=== PATIENT | female | born 1990 | race Caucasian/White ===

== ENCOUNTER 2020-01-14 05:45 | Emergency (ER) | payer OTHER ==
[2020-01-14 06:26] VITALS: BP 142/83; PULSE 98; TEMP 98.6; BMI 30.8
[2020-01-14] MEDS ORDERED: CEPHALEXIN MONOHYDRATE 500 MG CAPSULE (UD) PO ONE (07:29)
[2020-01-14] MEDS ORDERED: CEPHALEXIN MONOHYDRATE 500 MG CAPSULE (UD) ONE (07:34)
--- NOTE | 2020-01-14 07:38 | PDOC ---
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 She notes a distant history of cutting gestures but denies any recent issues with this, denies SI or HI and denies any attempt to harm herself, insists this was an accident. States her last tetanus vaccination was within the past 5 years. She notes the scissors were clean and there was no debris in the wound that she saw, did not lose a significant amount of blood, did not fall or suffer any additional injury, able to move and feel the thumb normally, denies any other symptoms. Past History - Medical History Allergies/Adverse Reactions: Allergies Allergy/AdvReac Type Severity Reaction Status Date / Time No Known Allergies Allergy Verified 01/14/20 06:00 Home Medications: Ambulatory Orders Cephalexin [Keflex Oral Suspension -] 500 mg PO TID 5 Days #1 bottle 01/14/20 - Psycho-Social/Smoking History Smoking History: Never smoked Have you smoked in the past 12 months: No - Substance Abuse Hx (Audit-C & DAST Scrn) How often the patient has a drink containing alcohol: Never Score: In Men: 4 or > Positive; In Women: 3 or > Positive: 0 Screen Result (Pos requires Nsg. Audit-10AR): Negative In the last yr the pt used illegal drug/Rx for NonMed reason: No Score: Yes response is considered Positive: 0 Screen Result (Positive result requires Nsg. DAST-10): Negative *Review of Systems - Review of Systems Able to Perform ROS?: Yes 01/14/20 09:58 GEN: no fever, chills, night sweats, generalized weakness, malaise, or unintentional weight change HEENT: no ear pain, congestion, sore throat, vision change, or eye pain CV: no chest pain, palpitations, lightheadedness, syncope, or edema RESP: no cough, wheezing, or SOB GI: no abdominal pain, nausea, vomiting, diarrhea, constipation, or white/black/bloody stool : no dysuria, hematuria, frequency, incontinence, retention, or discharge MSK: no muscle weakness or pain, no joint swelling or pain NEURO: no headache, seizure, vertigo, imbalance, numbness, tingling, focal weakness, or difficulty walking/talking PSYCH: no insomnia, behavior change, SI, HI, or substance use SKIN: left thumb laceration, otherwise skin exam with no prurtitis, excessive dryness, jaundice, rash, cuts, or unexplained bruises ROS otherwise negative except as noted in HPI *Physical Exam - Vital Signs Last Vital Signs Temp Pulse Resp BP Pulse Ox 98.6 F 98 H 20 142/83 99 01/14/20 05:59 01/14/20 05:59 01/14/20 05:59 01/14/20 05:59 01/14/20 05:59 - Physical Exam 01/14/20 09:58 GENERAL: a bit bizarre and agitated initially but nontoxic-appearing, A/Ox4, answers questions appropriately, calms down with conversation, accompanied by her significant other HEENT: PERRLA, EOMI, moist mucous membranes NECK/BACK: no midline ttp, no spinal stepoff or deformity, no hematoma, full ROM, neck supple CARDIOVASCULAR: regular rate/rhythm, no MGR, strong peripheral pulses, capillary refill <2 seconds, extremities wwp, no edema LUNGS/RESPIRATORY: no respiratory distress, CTAB GI/ABDOMEN: symmetric [id number], normoactive BS, soft, no ttp, no midline pulsatile masses : no CVA tenderness MSK/EXTREMITIES: no muscle atrophy, no acute deformity SKIN: 2.8 cm linear partial-thickness laceration to proximal third of lateral aspect of thenar eminence with oozing bleeding but no arterial bleeding, full sensation and motor intact, good capillary refill distally, warm and dry, no pallor, no jaundice, no rash, no pathologic-appearing bruising, no skin breakdown, no cuts, no lesions NEUROLOGICAL: GCS 15, CN II-XII grossly intact, 5/5 strength proximally and distally, no facial droop Procedures - Laceration/Wound Repair Left 1st digit Wound Length: 2.6 to 5.0 cm Wound Explored: clean Wound's Depth, Shape: superficial, linear Amount of Anesthetic (ccs): 3 Wound Repaired With: Sutures Suture Size/Type: 3:0, nylon Number of Sutures: 4 Splint Applied: No Sling Applied: No Progress: Patient tolerated well, irrigated for 7 minutes under faucet, hemostasis achieved, bacitracin applied and extra given to patient for home, bandage applied, PO abx given via E-Rx Medical Decision Making - Medical Decision Making 01/14/20 10:03 29 YOF p/w laceration, no e/o tendon, ligament, or bony injury, no obvious FB or debris, Tdap up to date. Initial Vital Signs Temp Pulse Resp BP Pulse Ox 98.6 F 98 H 20 142/83 99 01/14/20 05:59 01/14/20 05:59 01/14/20 05:59 01/14/20 05:59 01/14/20 05:59 DDX IBNLT: Simple skin/soft tissue laceration. There is no e/o tendon/ligament involvement, bony involvement, larger blood vessel injury, retained FB, wound contamination, etc. However this is a hand laceration with thenar eminence involvement and thus we will give Rx for antibiotics and repair laceration with sutures. W/U ordered: None TX ordered: abx dose ordered, refused by patient Laceration numbed, cleaned, repaired without issue as noted in Procedures section. Hemostasis achieved, good approximation, Bacitracin applied and wound dressed. DISCHARGE The Pts laceration has been repaired without issue, ppx given as indicated. They do not require abx for this laceration. E-Rx is sent to their pharmacy for abx and they will take the whole course as Rx. Workup is not concerning for emergency-level pathology at this time. The Pt is appropriate for discharge with close outpatient follow up. They are comfortable with this plan and will follow up with the [facility], referral information given. She is instructed to return for wound check and suture removal, or go to IM clinic for these services. Specific return precautions are discussed and they will come back to the ER if necessary. Discharge - Discharge Information Problems reviewed: Yes Clinical Impression/Diagnosis: Laceration Condition: Stable Disposition: HOME - Admission No - Additional Discharge Information Prescriptions: Cephalexin [Keflex Oral Suspension -] 500 mg PO TID 5 Days #1 bottle - Follow up/Referral Ref[place]: [facility] [place] Group] - Patient Discharge Instructions Patient Printed Discharge Instructions: DI for Suture Removal, DI for Laceration Repair -- Simple Additional Instructions: You were seen in the ER for a skin laceration. We did an exam, cleaned and repaired the laceration, and made sure your tetanus vaccination was up to date (it already was) and gave you your first dose of antibiotic. After our assessment, we do not believe you are having a medical emergency at this time, and we believe you are safe to go home. Please read the information in this packet on how to care for your laceration. 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 Keep the dressing on your wound until tonight, and keep this dressing clean and dry. Tonight, you can take the dressing off and you rinse the wound, but do not scrub the wound and do not soak it in water. Do not go swimming or take a bath or submerge the wound in standing water. Put a thin layer of antibiotic ointment on the wound once in tonight and once again tomorrow morning, and keep a loose bandage on it until tomorrow night. Please follow up with your primary care provider to have the sutures removed in 5-7 days, or return here to the ER to have them removed. If you have any new or worsening symptoms, especially increasing pain and redness to the area or other signs of infection like fever, please come back to the ER at any time (24 hours a day). If you are having severe or life threatening symptoms, or symptoms that make it unsafe to drive or have someone drive you, please call 911. We sent the antibiotic prescription to the [facility] about a mile away. It is very important that you pick this up and take it starting this morning, especially because you did not want the antibiotic pill here in the ER. This is important to prevent infection of your thumb and hand, which can cause serious problems such as loss of the thumb or hand. - Post Discharge Activity
== END 2020-01-14 07:51 | disposition home or self-care (01) ==
LOC: JER 05:45
PROC: 0HQGXZZ Repair Left Hand Skin, External Approach (ICD-10-PCS; principal; 2020-01-14)
DX: S61.012A Laceration without foreign body of left thumb without damage to nail, initial encounter (principal)
CPT/HCPCS: 99284-25